=== PATIENT | female | born 2000 | race American Indian/Alaskan Native ===

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

== ENCOUNTER 2020-08-02 08:00 | Observation (INO) | payer OTHER ==
[2020-08-02] MEDS ORDERED: SODIUM CHLORIDE 0.9% 1000 ML 1,000 ML IV ONE ×3 (08:28→10:09)
[2020-08-02] MEDS ORDERED: CLINDAMYCIN 600 MG/50 mL 600 MG/50 ML BAG IV ONE (08:28)
[2020-08-02] MEDS ORDERED: MORPHINE 2 MG/1 ML INJ IV ONE ×2 (08:43→22:15)
[2020-08-02] MEDS ORDERED: ONDANSETRON 4 MG/2 ML INJ IV ONE (08:43)
[2020-08-02] MEDS ORDERED: ACETAMINOPHEN 325 MG/10.15 ML ORAL LIQD UNIT DOSE PO ONE (08:43)
[2020-08-02 09:27] LABS: INR 1.12 (0.87-1.13)
[2020-08-02 09:28] LABS: Basophils # (Auto) 0.1 K/mm3 (0.0-0.1); Basophils % (Auto) 0.4 % (0.0-1.8); Hematocrit 38.7 % (30.3-42.9); Lymphocytes # (Auto) 0.8 K/mm3 (1.2-5.4); Lymphocytes % (Auto) 4.7 % (13.4-35.0); Mean Corpuscular HGB Conc 34 % (30-34); Mean Corpuscular Volume 93 fl (79-97); Monocytes # (Auto) 1.4 K/mm3 (0.0-0.8); Monocytes % (Auto) 7.6 % (0.0-7.3); Partial Thromboplastin Time 31.7 Sec. (24.2-36.6); Platelet Count 234 K/mm3 (140-440); Red Blood Count 4.18 M/mm3 (3.65-5.03); Red Cell Distribution Width 12.9 % (13.2-15.2)
[2020-08-02 09:37] LABS: Alanine Aminotransferase 7 units/L (7-56); Albumin 3.9 g/dL (3.9-5); BUN/Creatinine Ratio 9; Bilirubin,Direct 0.2 mg/dL (0-0.2); Blood Urea Nitrogen 7 mg/dL (7-17); Calcium 9.2 mg/dL (8.4-10.2); Hemolysis Index 14
--- NOTE | 2020-08-02 10:28 | Emergency Department Report ---
ED General Adult HPI - General Chief complaint: Sore Throat Stated complaint: SORETHROAT Time Seen by Provider: 08/02/20 08:26 Source: patient Mode of arrival: Ambulatory Limitations: No Limitations - History of Present Illness Initial comments: This is a 19-year-old female with a severe sore throat for 4 days. She is unable to tolerate p.o. She has had no respiratory symptoms and no difficulty with phonation. She does feel weak. She is not giving an extensive history at this time. However, she denies prior medical problems. Patient presents with a temperature of 103.1 blood pressure 132/68 and a heart rate of 156 which is persistent at the time of my encounter. -: days(s) Location: mouth Severity scale (0 -10): 5 Quality: aching Consistency: constant Improves with: none Worsens with: none Associated Symptoms: denies other symptoms (Poorly responsive to review but denies cough chest pain or respiratory symptoms.) - Related Data Allergies Allergy/AdvReac Type Severity Reaction Status Date / Time No Known Allergies Allergy Verified 08/02/20 08:03 ED Review of Systems ROS: Stated complaint: SORETHROAT Other details as noted in HPI Constitutional: weakness. denies: chills, fever Eyes: denies: eye pain, eye discharge, vision change ENT: throat pain. denies: ear pain Respiratory: denies: cough, shortness of breath, wheezing Cardiovascular: denies: chest pain, palpitations Endocrine: no symptoms reported Gastrointestinal: denies: abdominal pain, nausea, diarrhea Genitourinary: denies: urgency, dysuria, discharge Musculoskeletal: denies: back pain, joint swelling, arthralgia Skin: denies: rash, lesions Neurological: denies: headache, weakness, paresthesias Psychiatric: denies: anxiety, depression Hematological/Lymphatic: denies: easy bleeding, easy bruising ED Past Medical Hx - Past Medical History Previous Medical History?: No - Surgical History Past Surgical History?: No - Social History Smoking Status: Never Smoker Substance Use Type: Alcohol ED Physical Exam - General Limitations: Other (Poor cooperation) General appearance: alert, in no apparent distress - Head Head exam: Present: atraumatic, normocephalic - Eye Eye exam: Present: normal appearance - ENT ENT exam: Present: mucous membranes moist, other (Exudative pharyngitis. No evidence of uvular deviation or peritonsillar abscess) - Neck Neck exam: Present: normal inspection, lymphadenopathy, other (No neck swelling no fluctuant nodes there are bilateral submid mandibular nodes that are somewhat tender but certainly not fluctuant) - Respiratory Respiratory exam: Present: normal lung sounds bilaterally. Absent: respiratory distress - Cardiovascular Cardiovascular Exam: Present: normal rhythm, tachycardia. Absent: systolic murmur, diastolic murmur, rubs, gallop - GI/Abdominal GI/Abdominal exam: Present: soft, normal bowel sounds. Absent: distended, tenderness, guarding, rebound - Extremities Exam Extremities exam: Present: normal inspection - Back Exam Back exam: Present: normal inspection - Neurological Exam Neurological exam: Present: alert, oriented X3, CN II-XII intact. Absent: motor sensory deficit - Psychiatric Psychiatric exam: Present: normal affect, anxious - Skin Skin exam: Present: warm, dry, intact, normal color. Absent: rash ED Course Vital Signs 08/02/20 08/02/20 08/02/20 08:03 09:01 09:14 Temperature 103.1 F H Pulse Rate 156 H 120 H Respiratory 24 28 H 16 Rate Blood Pressure 132/68 125/75 Blood Pressure [Left] O2 Sat by Pulse 100 100 Oximetry 08/02/20 08/02/20 08/02/20 09:15 09:16 09:31 Temperature Pulse Rate 129 H 111 H Respiratory 16 18 19 Rate Blood Pressure 131/84 131/84 Blood Pressure [Left] O2 Sat by Pulse 98 99 Oximetry 08/02/20 08/02/20 09:34 10:00 Temperature 100.3 F H Pulse Rate 130 H Respiratory 20 18 Rate Blood Pressure Blood Pressure 132/86 [Left] O2 Sat by Pulse 100 97 Oximetry - Reevaluation(s) Reevaluation #1: Patient was given antipyretics and IV fluids. Despite this her heart rate has remained quite elevated 120s to 160s. She states she feels somewhat better. I have given her clindamycin and decided to add ceftriaxone. Cultures are pendin g. Strep screen is pending. Lactic acid level was hemolyzed and will be redrawn. The patient was found to have a positive test. She stated that her last period was on time and 07/04/2020. Case was related to Dr. Julian, hospitalist. Consultation is pending. 08/02/20 10:42 Reevaluation #2: Discussed again with Dr. Sanchez. She states to admit to Dr. Archibald. 08/02/20 10:49 ED Medical Decision Making - Lab Data Result diagrams: 08/02/20 08:46 08/02/20 08:46 Laboratory Results - last 24 hr 08/02/20 08/02/20 08/02/20 08:46 08:46 08:46 WBC 18.1 H RBC 4.18 Hgb 13.0 Hct 38.7 MCV 93 MCH 31 MCHC 34 RDW 12.9 L Plt Count 234 Lymph % (Auto) 4.7 L [place] % (Auto) 7.6 H Eos % (Auto) 0.0 Baso % (Auto) 0.4 Lymph # (Auto) 0.8 L [place] # (Auto) 1.4 H Eos # (Auto) 0.0 Baso # (Auto) 0.1 Seg Neutrophils % 87.3 H Seg Neutrophils # 15.8 H PT 14.3 INR 1.12 APTT 31.7 VBG pH Sodium Potassium Chloride Carbon Dioxide Anion Gap BUN Creatinine Estimated GFR BUN/Creatinine Ratio Glucose Calcium Magnesium Total Bilirubin Direct Bilirubin Indirect Bilirubin AST ALT Alkaline Phosphatase Total Protein Albumin Albumin/Globulin Ratio HCG, Qual Positive Monoscreen Negative 08/02/20 08/02/20 08/02/20 08:46 08:46 08:46 WBC RBC Hgb Hct MCV MCH MCHC RDW Plt Count Lymph % (Auto) Dukes % (Auto) Eos % (Auto) Baso % (Auto) Lymph # (Auto) [place]ukes # (Auto) Eos # (Auto) Baso # (Auto) Seg Neutrophils % Seg Neutrophils # PT INR APTT VBG pH 7.437 H Sodium 136 L Potassium 3.5 L Chloride 100.5 Carbon Dioxide 23 Anion Gap 16 BUN 7 Creatinine 0.8 Estimated GFR > 60 BUN/Creatinine Ratio 9 Glucose 89 Calcium 9.2 Magnesium 1.90 Total Bilirubin 0.90 Direct Bilirubin 0.2 Indirect Bilirubin 0.7 AST 13 ALT 7 Alkaline Phosphatase 58 Total Protein 7.5 Albumin 3.9 Albumin/Globulin Ratio 1.1 HCG, Qual Monoscreen - EKG Data -: EKG Interpreted by Mt EKG shows normal: sinus rhythm, axis, intervals, QRS complexes, ST-T waves Rate: normal, tachycardia - EKG Data Interpretation: no acute changes Critical care attestation.: If time is entered above; I have spent that time in minutes in the direct care of this critically ill patient, excluding procedure time. ED Disposition Clinical Impression: Exudative pharyngitis, Unable to eat, SIRS (systemic inflammatory response syndrome) Qualifiers: Weeks of gestation: less than 8 weeks Qualified Code(s): Z3A.01 - Less than 8 weeks gestation of Disposition: TO HOME OR SELFCARE Is pt being admited?: Yes Does the pt Need Aspirin: No Condition: Stable Referrals: DANUTA GIVENS MD [Primary Care Provider] - 3-5 Days Time of Disposition: 10:57
[2020-08-02] MEDS ORDERED: cefTRIAXone/NS 1 GM/50 ML 1 GM/50 ML BAG IV ONE (10:29)
--- NOTE | 2020-08-02 11:11 | History and Physical Report ---
History of Present Illness Date of examination: 08/02/20 Date of admission: 08/02/20 Chief complaint: Fever sore throat/ History of present illness: 19-year-old female patient with no significant past medical history presented to the emergency room with fever, not feeling well and sore throat of 3 to 4 days duration. Patient reports her sore throat became worse since yesterday unable to take anything by mouth, denies nausea vomiting or abdominal pain Denies chills and rigors, headache dizziness. Patient is unable to speak due to severe acute pharyngitis however able to communicate intermittently Initial evaluation consistent with fever of 103 F, tachycardia and leukocytosis Patient's test is positive Past History Past Medical History: No medical history Past Surgical History: No surgical history Social history: no significant social history Family history: no significant family history Medications and Allergies Allergies Allergy/AdvReac Type Severity Reaction Status Date / Time No Known Allergies Allergy Verified 08/02/20 08:03 Review of Systems Constitutional: fever, weakness Ears, nose, mouth and throat: sore throat, no nasal congestion, no nasal discharge Cardiovascular: no chest pain, no orthopnea, no palpitations Respiratory: no cough with sputum, no shortness of breath Gastrointestinal: no abdominal pain, no nausea, no vomiting Genitourinary Female: no flank pain, no dysuria Musculoskeletal: no myalgias, no arthritis Integumentary: no rash, no lesions Neurological: no seizures, no syncope Psychiatric: no anxiety, no depression Endocrine: no cold intolerance, no heat intolerance Hematologic/Lymphatic: no easy bruising, no easy bleeding Allergic/Immunologic: no urticaria, no allergic rhinitis Exam - Constitutional Vitals: Temp Pulse Resp BP Pulse Ox 100.3 F H 130 H 18 132/86 97 08/02/20 10:00 08/02/20 10:00 08/02/20 10:00 08/02/20 10:00 08/02/20 10:00 General appearance: Present: mild distress, well-nourished, other (Febrile) - EENT Eyes: Present: PERRL, EOM intact ENT: oropharyngeal erythema, other (Sore throat) - Neck Neck: Present: supple, normal ROM - Respiratory Respiratory effort: normal Respiratory: bilateral: diminished, rhonchi, negative: rales, wheezing - Cardiovascular Rhythm: regular Heart Sounds: Present: S1 & S2 - Extremities Extremities: no ischemia, No edema - Abdominal General gastrointestinal: Present: soft, non-tender, non-distended, normal bowel sounds - Integumentary Integumentary: Present: clear, warm - Musculoskeletal Musculoskeletal: strength equal bilaterally, generalized weakness - Psychiatric Psychiatric: appropriate mood/affect, cooperative - Neurologic Neurologic: moves all extremities Results - Labs CBC & Chem 7: 08/02/20 08:46 08/02/20 08:46 Labs: Abnormal lab results 08/02/20 08/02/20 08/02/20 Range/Units 08:46 08:46 08:46 WBC 18.1 H (4.5-11.0) K/mm3 RDW 12.9 L (13.2-15.2) % Lymph % (Auto) 4.7 L (13.4-35.0) % [place] % (Auto) 7.6 H (0.0-7.3) % Lymph # (Auto) 0.8 L (1.2-5.4) K/mm3 [place] # (Auto) 1.4 H (0.0-0.8) K/mm3 Seg Neutrophils % 87.3 H (40.0-70.0) % Seg Neutrophils # 15.8 H (1.8-7.7) K/mm3 VBG pH 7.437 H (7.320-7.420) Sodium 136 L (137-145) mmol/L Potassium 3.5 L (3.6-5.0) mmol/L Assessment and Plan --Febrile illness; T-max 103 degrees fall in height Secondary to acute pharyngitis Antipyretics, antibiotics cultures, Strep throat negative ID consulted --Acute pharyngitis; Rhea and strep throat test negative Supportive care with throat gargles IV clindamycin, follow cultures Follow ID evaluation recommendations --PUI; isolation precautions [place] PCR test requested Closely monitor --Leukocytosis; secondary to acute pharyngitis --Mild hyponatremia; continue normal saline Closely monitor electrolytes --Positive beta-hCG/early ; Will consult TOY PAINTER for recommendations --DVT prophylaxis; SCDs We will closely monitor the patient and adjust management as needed Plan of care reviewed with the patient and her nurse
--- NOTE | 2020-08-02 11:24 | Electrocardiograph Report ---
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
[2020-08-02 11:34] LABS: Bilirubin,Urine NEG (Negative); Blood,Urine NEG (Negative); Color,Urine Amber (Yellow); Mucus,Urine 1+ /HPF
[2020-08-02] MEDS ORDERED: LIDOCAINE VISCOUS 2% 15 ML ORAL LIQD PO ONE (12:29)
--- NOTE | 2020-08-02 12:30 | Consultation ---
History of Present Illness - Reason for Consult Consult date: 08/02/20 - History of Present Illness 19-year-old female no known past medical history presents complaining of sore throat. She notes began 4 days previously and has been progressively worse over that time. She has been unable to tolerate p.o. food or drink. She is a poor historian. She is able to speak without issue however. Febrile to 103.1 with a heart rate 156. White count 18.1 strep and mono negative. Beta hCG positive. Blood cultures no growth to date. Imaging personally reviewed: None obtained so far. Review of Systems: Bold if positive, otherwise negative General: fevers, chills, rigors HEENT: visual disturbance, diplopia, eye pain, +throat pain Respiratory: cough, sputum, hemoptysis, shortness of breath Cardiovascular: chest pain, syncope Gastrointestinal: nausea, vomiting, diarrhea, abdominal pain Genitourinary: dysuria, hematuria, flank pain Musculoskeletal: neck pain, back pain, joint pain, edema Neurologic: headaches, seizures Hematologic: easy bruising or bleeding Endocrine: night sweats, acute weight loss Skin: rash, jaundice, redness Psychiatric: suicidal, homicidal ideation Past History Past Medical History: No medical history Past Surgical History: No surgical history Social history: no significant social history Family history: no significant family history Medications and Allergies Allergies Allergy/AdvReac Type Severity Reaction Status Date / Time No Known Allergies Allergy Verified 08/02/20 08:03 Active Meds: Active Medications Sodium Chloride (Nacl 0.9% 1000 Ml) 1,000 mls @ 75 mls/hr IV DIRECT MAVIS Physical Examination - Physical Exam Narrative exam: Physical Exam: Constitutional: Alert, cooperative. No acute distress Head, Ears, Nose: Normocephalic, atraumatic. External ears, nose normal Eyes: Conjunctivae/corneas clear. No icterus. No ptosis. Neck: Supple, no meningeal signs Oral: dentition fair, no thrush Cardiovascular: S1, S2 normal. Respiratory: Good air entry, clear to auscultation bilaterally GI: Soft, non-tender; bowel sounds normal. No peritoneal signs. Musculoskeletal: No pedal edema, no cyanosis. Skin: No rash or abscess Hem/Lymphatic: No palpable cervical or supraclavicular nodes. No lymphangitis Psych: Mood ok. Affect normal Neurological: Awake, alert, oriented. No gross abnormality - Constitutional Vitals: Vital Signs Temp Pulse Resp BP Pulse Ox 100.3 F H 130 H 18 132/86 97 08/02/20 10:00 08/02/20 10:00 08/02/20 10:00 08/02/20 10:00 08/02/20 10:00 Temperature -Last 24 Hours Temperature 100.3 F Temperature 103.1 F Results - Labs CBC & Chem 7: 08/02/20 08:46 08/02/20 08:46 Labs: Abnormal lab results 08/02/20 08/02/20 08/02/20 Range/Units 08:46 08:46 08:46 WBC 18.1 H (4.5-11.0) K/mm3 RDW 12.9 L (13.2-15.2) % Lymph % (Auto) 4.7 L (13.4-35.0) % [place] % (Auto) 7.6 H (0.0-7.3) % Lymph # (Auto) 0.8 L (1.2-5.4) K/mm3 [place] # (Auto) 1.4 H (0.0-0.8) K/mm3 Seg Neutrophils % 87.3 H (40.0-70.0) % Seg Neutrophils # 15.8 H (1.8-7.7) K/mm3 VBG pH 7.437 H (7.320-7.420) Sodium 136 L (137-145) mmol/L Potassium 3.5 L (3.6-5.0) mmol/L Assessment and Plan Cultures: Blood culture 08/02/2020 no growth so far A/P: 19-year-old female no past medical history admitted with severe throat pain. #Covid PUI: Can cause pharyngitis, recommend ruling out. #Acute pharyngitis: Negative mono and strep. Recommend ruling out COVID-19 and HIV. #: Beta-hCG positive. Select medications with care Recs: -Start clindamycin 450 mg every 8 hours -Obtain HIV testing -Obtain Covid testing -Symptomatic treatment for sore throat including acetaminophen, ibuprofen Thank you for the consult, we will continue to follow. Sherice Delgadillo MD [facility] ([facility] O: [phone] F: [phone]
[2020-08-02] MEDS ORDERED: ACETAMINOPHEN 325 MG TAB PO PRN (12:41)
[2020-08-02] MEDS ORDERED: PHENOL 1.4% 177 ML BOTTLE MM PRN (13:06)
[2020-08-02] MEDS ORDERED: ACETAMINOPHEN 325 MG/10.15 ML ORAL LIQD UNIT DOSE PO NR ×2 (13:11→14:00)
[2020-08-02] MEDS: CLINDAMYCIN 600 MG/50 mL 600 MG/50 ML BAG IV SCH (17:04)
--- NOTE | 2020-08-02 19:12 | Consultation ---
History of Present Illness Consult date: 08/02/20 Requesting physician: GABRIELLA HIKCS Reason for consult: other (Positive test) History of present illness: There is a 19-year-old black female with last menstrual period was 07/04/2020 who presented to the emergency room with severe pharyngitis and fever chills nausea and vomiting and generally not feeling well. Patient had a positive cyst noted on her work-up. Patient was unaware. Patient without any abnormal vaginal bleeding without any abdominal pain. Patient states that her menses are regular and she is expected her menses to start today. 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 - Obstetrical History : 1 Para: 0 Hx # Term Pregnancies: 0 Number of Pregnancies: 0 Spontaneous Abortions: 0 Induced : 0 Number of Living Children: 0 Medications and Allergies Allergies Allergy/AdvReac Type Severity Reaction Status Date / Time No Known Allergies Allergy Verified 08/02/20 08:03 Active Meds: Active Medications Acetaminophen (Acetaminophen 325 Mg/10.15 Ml Oral Liqd Unit Dose) 650 mg PO PREOP NR Stop: 08/02/20 23:00 Sodium Chloride (Nacl 0.9% 1000 Ml) 1,000 mls @ 75 mls/hr IV DIRECT MAVIS Clindamycin HCl (Cleocin 600 Mg/50 Ml) 600 mg in 50 mls @ 100 mls/hr IV Q8H MAVIS; Protocol Last Admin: 08/02/20 17:04 Dose: 100 mls/hr Documented by: Phenol (Phenol 1.4% 177 Ml Bottle) 1 spray MM PRN PRN PRN Reason: Sore Throat Review of Systems Constitutional: other (See H&P) - Vital Signs Vital signs: Vital Signs Temp Pulse Resp BP Pulse Ox 103.1 F H 156 H 24 132/68 100 08/02/20 08:03 08/02/20 08:03 08/02/20 08:03 08/02/20 08:03 08/02/20 08:03 Temp Pulse Resp BP Pulse Ox 99.2 F 116 H 16 114/88 96 08/02/20 17:30 08/02/20 18:31 08/02/20 18:31 08/02/20 18:31 08/02/20 18:31 - Physical Exam Breasts: Positive: deferred Cardiovascular: Regular rate Abdomen: Positive: soft. Negative: tenderness, guarding Genitourinary (Female): Positive: other (Deferred) Results Result Diagrams: 08/02/20 08:46 08/02/20 08:46 Abnormal lab results 08/02/20 08/02/20 08/02/20 Range/Units 08:46 08:46 08:46 WBC 18.1 H (4.5-11.0) K/mm3 RDW 12.9 L (13.2-15.2) % Lymph % (Auto) 4.7 L (13.4-35.0) % [place] % (Auto) 7.6 H (0.0-7.3) % Lymph # (Auto) 0.8 L (1.2-5.4) K/mm3 [place] # (Auto) 1.4 H (0.0-0.8) K/mm3 Seg Neutrophils % 87.3 H (40.0-70.0) % Seg Neutrophils # 15.8 H (1.8-7.7) K/mm3 VBG pH 7.437 H (7.320-7.420) Sodium 136 L (137-145) mmol/L Potassium 3.5 L (3.6-5.0) mmol/L All other labs normal. Assessment and Plan - Patient Problems (1) Positive test Current Visit: Yes Status: Acute Plan to address problem: Patient approximately 4 weeks without any abnormal bleeding or pelvic abdominal pain. Patient just finding out today of the . Patient symptoms all appear to be secondary to a pharyngitis. At this early gestational age treatment should be concentrated on her pharyngitis. The patient can follow-up after discharge to start her obstetrical care. Please call if you have any questions or need any additional consultation.
[2020-08-02] MEDS: SODIUM CHLORIDE 0.9% 1000 ML 1,000 ML IV SCH (21:00)
[2020-08-02 22:09] VITALS: BP 119/76
[2020-08-03] MEDS: CLINDAMYCIN 600 MG/50 mL 600 MG/50 ML BAG IV SCH ×3 (01:33→18:14)
[2020-08-03] MEDS: SODIUM CHLORIDE 0.9% 1000 ML 1,000 ML IV SCH (09:32)
--- NOTE | 2020-08-03 13:43 | Progress Note ---
Assessment and Plan Cultures: Blood culture 08/02/2020 no growth so far A/P: 19-year-old female no past medical history admitted with severe throat pain. #Covid PUI: Can cause pharyngitis, recommend ruling out. #Acute pharyngitis: Negative mono and strep. Recommend ruling out COVID-19. HIV negative. #: Beta-hCG positive. Select medications with care Recs: -Start clindamycin 600 mg every 8 hours, complete 5 days. -Follow up Covid testing -Symptomatic treatment for sore throat including acetaminophen, ibuprofen Thank you for the consult, we will continue to follow. Dr. Conley taking over tomorrow. Sherice Delgadillo MD [facility] O: [phone] F: [phone] Subjective Date of service: 08/03/20 Interval history: Patient fevers appear to be resolving yesterday, though no new labs available today and no new vitals done. Objective - Exam Narrative Exam: Physical exam deferred due to PPE conservation strategy. Please refer to primary team's note. - Constitutional Vitals: Vital Signs Temp Pulse Resp BP Pulse Ox 99.8 F H 114 H 22 119/76 98 08/02/20 21:43 08/02/20 21:43 08/02/20 21:43 08/02/20 21:43 08/02/20 21:43 Temperature -Last 24 Hours Temperature 99.8 F Temperature 99.2 F - Labs CBC & Chem 7: 08/02/20 08:46 08/02/20 08:46
--- NOTE | 2020-08-03 16:02 | Discharge Summary ---
Providers - Providers Date of Admission: 08/02/20 10:58 Date of discharge: 08/03/20 Attending physician: STEPHAN FULLER 08/02/20 10:36 Consult to Physician [CONS] Urgent Comment: Consulting Provider: FRANCESCA WATTS Physician Instructions: Reason For Exam: SIRS Syndrome Pharyngitis 08/02/20 10:44 Consult to Physician [CONS] Routine Comment: Consulting Provider: YOLANDA SANTOS Physician Instructions: Reason For Exam: Pharyngitis with sepsis 08/02/20 13:10 Consult to Physician [CONS] Routine Comment: Consulting Provider: DELANO NUÑEZ Physician Instructions: Reason For Exam: 4 weeks /fever/sepsis acute pharyngitis/ [facility] Condition: Stable Hospital course: History of present illness: 19-year-old female patient with no significant past medical history presented to the emergency room with fever, not feeling well and sore throat of 3 to 4 days duration. Patient reports her sore throat became worse since yesterday unable to take anything by mouth, denies nausea vomiting or abdominal pain Denies chills and rigors, headache dizziness. Patient is unable to speak due to severe acute pharyngitis however able to communicate intermittently Initial evaluation consistent with fever of 103 F, tachycardia and leukocytosis Patient's test is positive Covid test is negative Assessment and Plan SIRS --Febrile illness; T-max 103 degrees fall in height Secondary to acute pharyngitis Antipyretics, antibiotics cultures, Strep throat negative Discharge on Augmentin 875 mg po bid --Acute pharyngitis; Robertson and strep throat test negative Supportive care with throat gargles IV Ceftriaxone and discharge Follow ID evaluation recommendations --PUI; isolation precautions Bradshaw PCR test Negative --Leukocytosis; secondary to acute pharyngitis --Mild hyponatremia; continue normal saline Closely monitor electrolytes --Positive beta-hCG/early ; Will consult [facility] for recommendations Disposition: TO HOME OR SELFCARE Final Discharge Diagnosis (Prints w/discharge instructions): Strep pharyngitis - Discharge Diagnoses (1) SIRS (systemic inflammatory response syndrome) Status: Acute (2) Exudative pharyngitis Status: Acute Comment: Discharge on oral Augmentin 875 bid x 8 days (3) Status: Acute Qualifiers: Weeks of gestation: less than 8 weeks Qualified Code(s): Z3A.01 - Less than 8 weeks gestation of Core Measure Documentation - Palliative Care Palliative Care/ Comfort Measures: Not Applicable - Core Measures Any of the following diagnoses?: none Exam - Constitutional Vitals: Temp Pulse Resp BP Pulse Ox 99.8 F H 114 H 22 119/76 98 08/02/20 21:43 08/02/20 21:43 08/02/20 21:43 08/02/20 21:43 08/02/20 21:43 General appearance: Present: no acute distress, well-nourished - EENT Eyes: Present: PERRL ENT: hearing intact, clear oral mucosa, other (Posterior pharynx exudate) - Neck Neck: Present: supple, normal ROM - Respiratory Respiratory effort: normal Respiratory: bilateral: CTA - Cardiovascular Heart rate: 78 Rhythm: regular Heart Sounds: Present: S1 & S2. Absent: rub, click - Extremities Extremities: pulses symmetrical, No edema Peripheral Pulses: within normal limits - Abdominal General gastrointestinal: Present: soft, non-tender, non-distended, normal bowel sounds Female genitourinary: Present: normal - Integumentary Integumentary: Present: clear, warm, dry - Musculoskeletal Musculoskeletal: gait normal, strength equal bilaterally - Psychiatric Psychiatric: appropriate mood/affect, intact judgment & insight - Neurologic Neurologic: CNII-XII intact, moves all extremities Plan Activity: no restrictions Diet: regular [facility] [Primary Care Provider] - 3-5 Days DELANO NUÑEZ MD [Staff Physician] - 7 Days ILIANA HE MD [Staff Physician] - 7 Days
[2020-08-03] MEDS ORDERED: cefTRIAXone/NS 2 GM/100 ML 2 GM/100 ML BAG IV SCH (17:00)
== END 2020-08-03 19:21 | disposition home or self-care (01) ==
LOC: ED 08:00 → 3A 10:58
PROVIDERS: ADMIT Internal Medicine; ATTEND Internal Medicine
DX: J02.9 Acute pharyngitis, unspecified (principal); Z20.822 Contact with and (suspected) exposure to COVID-19; R65.10 Systemic inflammatory response syndrome (SIRS) of non-infectious origin without acute organ dysfunction; Z33.1 Pregnant state, incidental; D72.829 Elevated white blood cell count, unspecified; E87.1 Hypo-osmolality and hyponatremia; Z79.899 Other long term (current) drug therapy
CPT/HCPCS: 36415; 80048; 80076; 81001; 82140; 82805; 83735; 84439; 84443; 84703; 85025; 85610; 85730; 86308; 87040; 87086; 87116; 87430; 87806; 93005; 96361; 96365; 96366; 96367; 96375; 96376; 99284; G0378; J0696; J2270; J2405; J7030; U0003

== ENCOUNTER 2020-08-15 06:12 | Emergency (ER) | payer SELFPAY ==
[2020-08-15 06:32] VITALS: BP 140/91
[2020-08-15 07:02] LABS: Basophils % (Auto) 0.4 % (0.0-1.8); Eosinophils # (Auto) 0.1 K/mm3 (0.0-0.4); Eosinophils % (Auto) 0.8 % (0.0-4.3); Hematocrit 39.3 % (30.3-42.9); Hemoglobin 12.9 gm/dl (10.1-14.3); Lymphocytes # (Auto) 1.6 K/mm3 (1.2-5.4); Lymphocytes % (Auto) 17.7 % (13.4-35.0); Mean Corpuscular HGB Conc 33 % (30-34); Mean Corpuscular Volume 94 fl (79-97); Monocytes # (Auto) 0.7 K/mm3 (0.0-0.8); Monocytes % (Auto) 7.6 % (0.0-7.3); Platelet Count 453 K/mm3 (140-440); Red Cell Distribution Width 13.5 % (13.2-15.2)
[2020-08-15 07:11] LABS: INR 0.91 (0.87-1.13)
[2020-08-15 07:11] LABS: Bilirubin,Urine NEG (Negative); Blood,Urine MOD (Negative); Color,Urine Yellow (Yellow); Mucus,Urine 1+ /HPF; Protein,Urine <15 mg/dL mg/dL (Negative); Urobilinogen,Urine < 2.0 mg/dL (<2.0)
[2020-08-15 07:24] LABS: Blood Urea Nitrogen 13 mg/dL (7-17); Hemolysis Index 3
[2020-08-15 07:25] LABS: BUN/Creatinine Ratio 19
--- NOTE | 2020-08-15 07:28 | Ultrasound Report ---
US OB <= 14 weeks fetus INDICATION / CLINICAL INFORMATION: Vaginal bleeding. COMPARISON: None available. FINDINGS: Uterus appears normal. Endometrial stripe measures 4 mm in thickness. There is no evidence of intraut erine . Both ovaries are unremarkable. No free fluid. IMPRESSION: 1. Normal study of the pelvis. No intrauterine . Signer Name: Tom Alonzo MD Signed: 08/15/2020 7:23 AM Workstation Name: [id number]
--- NOTE | 2020-08-15 10:07 | Emergency Department Report ---
ED Female HPI - General Chief complaint: Vaginal Bleeding Stated complaint: 6 WEEKS ;VAGINAL BLEEDING Time Seen by Provider: 08/15/20 10:05 Source: patient Mode of arrival: Ambulatory Limitations: No Limitations - History of Present Illness Initial comments: Patient is a 19-year-old -Swiss female that comes to the emergency room with complaints that she is and having vaginal bleeding. It started yesterday. She states that this point is like a regular menses. Patient denies any pain per se just mild cramping. She denies any vaginal discharge. Denies any dysuria. This is patient's first . Patient is ambulatory nontoxic and [id number] on exam. Patient is ambulatory and taking p.o. MD Complaint: vaginal bleeding -: Gradual, days(s) Severity: mild Quality: cramping Improves with: none Worsens with: none Are you Now?: Yes Associated Symptoms: denies other symptoms, vaginal discharge - Related Data Previous Rx's Medication Instructions Recorded Last Taken Type Amoxicillin/Potassium Clav 1 each PO BID #16 tablet 08/03/20 Unknown Rx [Augmentin 875-125 Tablet] Phenol 1.4% [Chloraseptic] 1 spray MM PRN PRN #1 bottle 08/03/20 Unknown Rx Allergies Allergy/AdvReac Type Severity Reaction Status Date / Time No Known Allergies Allergy Verified 08/02/20 08:03 ED Review of Systems ROS: Stated complaint: 6 WEEKS ;VAGINAL BLEEDING Other details as noted in HPI Comment: All other systems reviewed and negative ED Past Medical Hx - Past Medical History Previous Medical History?: No Hx Hypertension: No Hx Heart Attack/AMI: No Hx Congestive Heart Failure: No Hx Diabetes: No Hx Deep Vein Thrombosis: No Hx Pulmonary Embolism: No Hx GERD: No Hx Liver Disease: No Hx Renal Disease: No Hx Arthritis: No Hx Seizures: No Hx Kidney Stones: No Hx Asthma: No Hx COPD: No Hx Tuberculosis: No Hx Dementia: No Hx HIV: No - Surgical History Past Surgical History?: No Hx Coronary Stent: No Hx Pacemaker: No Hx Internal Defibrillator: No - Family History Family history: no significant - Social History Smoking Status: Former Smoker Substance Use Type: None - Medications Home Medications: Home Medications Medication Instructions Recorded Confirmed Last Taken Type Amoxicillin/Potassium Clav 1 each PO BID #16 tablet 08/03/20 Unknown Rx [Augmentin 875-125 Tablet] Phenol 1.4% [Chloraseptic] 1 spray MM PRN PRN #1 bottle 08/03/20 Unknown Rx ED Physical Exam - General Limitations: No Limitations General appearance: alert, in no apparent distress - Head Head exam: Present: atraumatic, normocephalic - Eye Eye exam: Present: normal appearance - ENT ENT exam: Present: mucous membranes moist - Neck Neck exam: Present: normal inspection - Respiratory Respiratory exam: Present: normal lung sounds bilaterally. Absent: respiratory distress - Cardiovascular Cardiovascular Exam: Present: regular rate, normal rhythm. Absent: systolic murmur, diastolic murmur, rubs, gallop - GI/Abdominal GI/Abdominal exam: Present: soft, normal bowel sounds - Extremities Exam Extremities exam: Present: normal inspection - Back Exam Back exam: Present: normal inspection - Neurological Exam Neurological exam: Present: alert, oriented X3 - Psychiatric Psychiatric exam: Present: normal affect, normal mood - Skin Skin exam: Present: warm, dry, intact, normal color. Absent: rash ED Course Vital Signs 08/15/20 06:30 Temperature 98.1 F Pulse Rate 89 Respiratory 17 Rate Blood Pressure 140/91 O2 Sat by Pulse 93 Oximetry ED Medical Decision Making - Lab Data Result diagrams: 08/15/20 06:47 08/15/20 06:47 - Radiology Data Radiology results: report reviewed, image reviewed - Medical Decision Making Lab Results 08/15/20 08/15/20 08/15/20 Range/Units 06:47 06:47 06:47 WBC 8.9 (4.5-11.0) K/mm3 RBC 4.20 (3.65-5.03) M/mm3 Hgb 12.9 (10.1-14.3) gm/dl Hct 39.3 (30.3-42.9) % MCV 94 (79-97) fl MCH 31 (28-32) pg MCHC 33 (30-34) % RDW 13.5 (13.2-15.2) % Plt Count 453 H (140-440) K/mm3 Lymph % (Auto) 17.7 (13.4-35.0) % Kimble % (Auto) 7.6 H (0.0-7.3) % Eos % (Auto) 0.8 (0.0-4.3) % Baso % (Auto) 0.4 (0.0-1.8) % Lymph # (Auto) 1.6 (1.2-5.4) K/mm3 Kimble # (Auto) 0.7 (0.0-0.8) K/mm3 Eos # (Auto) 0.1 (0.0-0.4) K/mm3 Baso # (Auto) 0.0 (0.0-0.1) K/mm3 Seg Neutrophils % 73.5 H (40.0-70.0) % Seg Neutrophils # 6.6 (1.8-7.7) K/mm3 PT 12.1 L (12.2-14.9) Sec. INR 0.91 (0.87-1.13) Sodium 139 (137-145) mmol/L Potassium 4.1 (3.6-5.0) mmol/L Chloride 102.8 (98-107) mmol/L Carbon Dioxide 26 (22-30) mmol/L Anion Gap 14 mmol/L BUN 13 (7-17) mg/dL Creatinine 0.7 (0.6-1.2) mg/dL Estimated GFR > 60 ml/min BUN/Creatinine Ratio 19 % Glucose 95 (65-100) mg/dL Calcium 9.0 (8.4-10.2) mg/dL HCG, Quant (0-4) mIU/mL Urine Color (Yellow) Urine Turbidity (Clear) Urine pH (5.0-7.0) Ur Specific [place] (1.003-1.030) Urine Protein (Negative) mg/dL Urine Glucose (UA) (Negative) mg/dL Urine Ketones (Negative) mg/dL Urine Blood (Negative) Urine Nitrite (Negative) Urine Bilirubin (Negative) Urine Urobilinogen (<2.0) mg/dL Ur Leukocyte Esterase (Negative) Urine WBC (Auto) (0.0-6.0) /HPF Urine RBC (Auto) (0.0-6.0) /HPF U Epithel Cells (Auto) (0-13.0) /HPF Urine Mucus /HPF Blood Type Ord Rhogam Gestat Weeks WEEKS 08/15/20 08/15/20 08/15/20 Range/Units 06:47 06:47 06:48 WBC (4.5-11.0) K/mm3 RBC (3.65-5.03) M/mm3 Hgb (10.1-14.3) gm/dl Hct (30.3-42.9) % MCV (79-97) fl MCH (28-32) pg MCHC (30-34) % RDW (13.2-15.2) % Plt Count (140-440) K/mm3 Lymph % (Auto) (13.4-35.0) % Kimble % (Auto) (0.0-7.3) % Eos % (Auto) (0.0-4.3) % Baso % (Auto) (0.0-1.8) % Lymph # (Auto) (1.2-5.4) K/mm3 Kimble # (Auto) (0.0-0.8) K/mm3 Eos # (Auto) (0.0-0.4) K/mm3 Baso # (Auto) (0.0-0.1) K/mm3 Seg Neutrophils % (40.0-70.0) % Seg Neutrophils # (1.8-7.7) K/mm3 PT (12.2-14.9) Sec. INR (0.87-1.13) Sodium (137-145) mmol/L Potassium (3.6-5.0) mmol/L Chloride (98-107) mmol/L Carbon Dioxide (22-30) mmol/L Anion Gap mmol/L BUN (7-17) mg/dL Creatinine (0.6-1.2) mg/dL Estimated GFR ml/min BUN/Creatinine Ratio % Glucose (65-100) mg/dL Calcium (8.4-10.2) mg/dL HCG, Quant 31.73 H (0-4) mIU/mL Urine Color Yellow (Yellow) Urine Turbidity Clear (Clear) Urine pH 5.0 (5.0-7.0) Ur Specific [place] 1.026 (1.003-1.030) Urine Protein <15 mg/dl (Negative) mg/dL Urine Glucose (UA) Neg (Negative) mg/dL Urine Ketones Neg (Negative) mg/dL Urine Blood Mod (Negative) Urine Nitrite Neg (Negative) Urine Bilirubin Neg (Negative) Urine Urobilinogen < 2.0 (<2.0) mg/dL Ur Leukocyte Esterase Neg (Negative) Urine WBC (Auto) 2.0 (0.0-6.0) /HPF Urine RBC (Auto) 10.0 (0.0-6.0) /HPF U Epithel Cells (Auto) 5.0 (0-13.0) /HPF Urine Mucus 1+ /HPF Blood Type B POSITIVE Ord Rhogam Gestat Weeks Rh pos WEEKS Vital Signs 08/15/20 06:30 Temperature 98.1 F Pulse Rate 89 Respiratory 17 Rate Blood Pressure 140/91 O2 Sat by Pulse 93 Oximetry rh pos labs noted ua noted us noted G1 lmp 217-20 Patient being discharged home with discharge plan of care including pelvic rest. Tylenol for pain. And [employer] follow-up in 48 hours for repeat lab and imaging. Patient verbalizes understanding of discharge plan of care. - Differential Diagnosis ro ab Critical care attestation.: If time is entered above; I have spent that time in minutes in the direct care of this critically ill patient, excluding procedure time. ED Disposition Clinical Impression: Threatened Disposition: DC-01 TO HOME OR SELFCARE Is pt being admited?: No Does the pt Need Aspirin: No Condition: Stable Instructions: Threatened Miscarriage Additional Instructions: pelvic rest no sex motrin or tylenol for pain follow up with obgyn in 48 hours for recheck below referral below Referrals: PRIMARY CARE, [Primary Care Provider] - 3-5 Days WESTON VAZQUEZ MD [Staff Physician] - 3-5 Days Time of Disposition: 10:07
== END 2020-08-15 10:29 | disposition home or self-care (01) ==
LOC: ED 06:12
DX: O20.0 Threatened abortion (principal); Z79.899 Other long term (current) drug therapy; Z87.891 Personal history of nicotine dependence; Z3A.01 Less than 8 weeks gestation of pregnancy
CPT/HCPCS: 36415; 76801; 80048; 81001; 84702; 85025; 85610; 86900; 86901

== ENCOUNTER 2020-08-16 06:32 | Emergency (ER) | payer SELFPAY ==
[2020-08-16 06:37] VITALS: BP 119/67
--- NOTE | 2020-08-16 08:25 | Emergency Department Report ---
Chief Complaint: Recheck/Abnormal Lab/Rx Stated Complaint: RECHECK LAB WORK Time Seen by Provider: 08/16/20 08:22 - HPI History of Present Illness: here yesterday for threatened AB instructed to go for follow up in 48 hours it has been less than 24 no change in her complaints explained to pt it is too early to have blood checked - ROS Review of Systems: vag spotting in preg - Exam Vital Signs: Vital Signs 08/16/20 06:33 Temperature 97.6 F Pulse Rate 91 H Respiratory 16 Rate Blood Pressure 119/67 O2 Sat by Pulse 100 Oximetry Physical Exam: a/o abd snt ambulatory and non ill appearing vs normal MSE screening note: Focused history and physical exam performed. Due to findings the following was ordered: no life threat Will see ob tomorrow as instructed yesterday Patient discussed with doctor:: SUJIT BURRIS ED Disposition for MSE Clinical Impression: Disposition: MED SCREENING EXAM-LEFT Is pt being admited?: No Does the pt Need Aspirin: No Condition: Stable Referrals: PRIMARY CARE, [Primary Care Provider] - 3-5 Days Time of Disposition: 08:25
== END 2020-08-16 08:25 | disposition left against medical advice (07) ==
LOC: ED 06:32
DX: Z33.1 Pregnant state, incidental (principal); Z53.21 Procedure and treatment not carried out due to patient leaving prior to being seen by health care provider

== ENCOUNTER 2020-08-20 11:19 | Emergency (ER) | payer SELFPAY ==
[2020-08-20 11:25] VITALS: BP 133/100
--- NOTE | 2020-08-20 11:36 | Emergency Department Report ---
<SINAI GARY - Last Filed: 08/20/20 12:45> ED Female HPI - General Chief complaint: Recheck/Abnormal Lab/Rx Stated complaint: RECHECK Time Seen by Provider: 08/20/20 11:30 Source: patient Mode of arrival: Ambulatory Limitations: No Limitations - History of Present Illness Initial comments: 19 yr old female presents to ED for recheck of her Quant HCG. Patient found out she was 08/02/2020 when she came in with c/o sore throat and came her for eval. It was incidental finding, as she was not aware she was . Patient returned to ED on 08/15/20 as she was having vag bleeding. Her quant HCG at the time was 31.73, she was dx with threatened miscarriage and was given referral to Dr Buck's office for f/u. She states she tried to f/u with the office but they told her they could not see her today and so she came here. She states she is no longer bleeding or have any symptoms at this time. She is . Complaint: other (recheck Quant HCG) -: days(s) - Related Data Previous Rx's Medication Instructions Recorded Last Taken Type Amoxicillin/Potassium Clav 1 each PO BID #16 tablet 08/03/20 Unknown Rx [Augmentin 875-125 Tablet] Phenol 1.4% [Chloraseptic] 1 spray MM PRN PRN #1 bottle 08/03/20 Unknown Rx Allergies Allergy/AdvReac Type Severity Reaction Status Date / Time No Known Allergies Allergy Verified 08/20/20 11:22 ED Review of Systems Comment: All other systems reviewed and negative Constitutional: denies: chills, fever ENT: denies: ear pain, throat pain, dental pain, hearing loss Respiratory: denies: cough, shortness of breath, wheezing Cardiovascular: denies: chest pain, palpitations Gastrointestinal: denies: abdominal pain, nausea, diarrhea, constipation, melena, hematochezia Genitourinary: denies: urgency, dysuria, frequency, hematuria, discharge, abnormal menses, dyspareunia Musculoskeletal: denies: back pain, joint swelling, arthralgia Skin: denies: rash, lesions, change in color, change in hair/nails, pruritus Neurological: denies: headache, weakness, paresthesias, abnormal gait, vertigo Psychiatric: denies: anxiety, depression, auditory hallucinations, visual hallucinations, homicidal thoughts, suicidal thoughts Hematological/Lymphatic: denies: easy bleeding, easy bruising ED Past Medical Hx - Past Medical History Hx Hypertension: No Hx Heart Attack/AMI: No Hx Congestive Heart Failure: No Hx Diabetes: No Hx Deep Vein Thrombosis: No Hx Pulmonary Embolism: No Hx GERD: No Hx Liver Disease: No Hx Renal Disease: No Hx Arthritis: No Hx Seizures: No Hx Kidney Stones: No Hx Asthma: No Hx COPD: No Hx Tuberculosis: No Hx Dementia: No Hx HIV: No - Surgical History Hx Coronary Stent: No Hx Pacemaker: No Hx Internal Defibrillator: No - Social History Smoking Status: Never Smoker Substance Use Type: None - Medications Home Medications: Home Medications Medication Instructions Recorded Confirmed Last Taken Type Amoxicillin/Potassium Clav 1 each PO BID #16 tablet 08/03/20 Unknown Rx [Augmentin 875-125 Tablet] Phenol 1.4% [Chloraseptic] 1 spray MM PRN PRN #1 bottle 08/03/20 Unknown Rx ED Physical Exam - General Limitations: No Limitations General appearance: alert, in no apparent distress - Head Head exam: Present: atraumatic, normocephalic, normal inspection - Eye Eye exam: Present: normal appearance, PERRL, EOMI Pupils: Present: normal accommodation - ENT ENT exam: Present: normal exam, mucous membranes moist - Neck Neck exam: Present: normal inspection, full ROM - Respiratory Respiratory exam: Present: normal lung sounds bilaterally. Absent: respiratory distress - Cardiovascular Cardiovascular Exam: Present: regular rate, normal rhythm, normal heart sounds - GI/Abdominal GI/Abdominal exam: Present: soft. Absent: distended, tenderness, guarding, rebound, rigid - Neurological Exam Neurological exam: Present: alert, oriented X3, CN II-XII intact, normal gait - Psychiatric Psychiatric exam: Present: normal affect, normal mood - Skin Skin exam: Present: intact ED Medical Decision Making - Medical Decision Making Patient quant hCG went from 31.73-2.93 today. Patient likely had a miscarriage. Patient again denies any symptoms currently. She is not toxic, she is well- appearing, and is not in any acute distress. Her vital signs are stable. No indication for further work-up, or emergent consult at this time. Discussed lab results and diagnosis with patient. She expressed understanding of instructions and agree with plan. Patient stable at time of discharge ED Disposition Clinical Impression: Negative test Disposition: DC-01 TO HOME OR SELFCARE Is pt being admited?: No Does the pt Need Aspirin: No Condition: Stable Instructions: Miscarriage, [id number] Additional Instructions: You likely had a miscarriage based on your lab results. I still recommend Follow up with OBGYN next week. Return to ED if symptoms changes or worsens. Referrals: [facility] [Provider Group] - 7-10 days [facility] [Provider Group] - 7-10 days Time of Disposition: 12:38 <FELICITA WAGNER - Last Filed: 08/20/20 18:56> ED Review of Systems ROS: Stated complaint: RECHECK Other details as noted in HPI ED Course Vital Signs 08/20/20 11:22 Temperature 98 F Pulse Rate 90 Respiratory 20 Rate Blood Pressure 133/100 O2 Sat by Pulse 100 Oximetry Critical care attestation.: If time is entered above; I have spent that time in minutes in the direct care of this critically ill patient, excluding procedure time. ED Disposition Is pt being admited?: No Does the pt Need Aspirin: No
== END 2020-08-20 13:25 | disposition home or self-care (01) ==
LOC: ED 11:19
DX: Z79.899 Other long term (current) drug therapy (principal); Z32.02 Encounter for pregnancy test, result negative
CPT/HCPCS: 36415; 84702; 99283